=== PATIENT | male | born 1935 | race African-American/Black ===

== ENCOUNTER 2018-11-07 20:48 | Inpatient (IN) | payer MEDICAID ==
[~2018-11-07] VITALS: Ht 167.6 cm; Wt 64.9 kg
[2018-11-07 23:00] LABS: CHLORIDE 101 mEq/L (98-107)
[2018-11-07] MEDS ORDERED: KETOROLAC 15MG/ML VIAL IV ONE (23:00)
[2018-11-07 23:02] LABS: BASOPHILS % 0.4 % (0.0-2.0); HEMATOCRIT. 42.6 % (42.0-52.0); HEMOGLOBIN. 14.2 g/dL (14.0-18.0); LYMPHOCYTES % 7.1 % (20.0-50.0); MEAN CORPUSCULAR HEMOGLOBIN 34.7 pg (28.0-32.0); MEAN CORPUSCULAR VOLUME 104.2 fL (80.0-94.0); MEAN PLATELET VOLUME 8.2 fl (7.4-10.4); MONOCYTES % 9.7 % (2.0-8.0); NEUTROPHILS % 81.8 % (40.0-76.0); PLATELET 189 x1000/uL (130-400); RED BLOOD CELL COUNT 4.09 mill/uL (4.7-6.1); RED CELL DISTRIBUTION WIDTH 16.5 % (11.6-14.6)
[2018-11-07 23:03] LABS: ETHANOL BLOOD < 10 mg/dL
[2018-11-07 23:04] LABS: INR 1.2; PARTIAL THROMBOPLASTIN TIME 27.3 sec (23.4-31.0); PROTHROMBIN TIME 11.9 sec (9.6-11.0)
[2018-11-07] MEDS ORDERED: ASPIRIN 325MG EC TABLET PO ONE (23:30)
[2018-11-07] MEDS ORDERED: SODIUM CHLORIDE 0.9% 1,000 ML IV ONE (23:30)
[2018-11-08 00:02] LABS: *AMPHETAMINES SCREEN URINE NEGATIVE (NEGATIVE); *BARBITURATES SCREEN URINE NEGATIVE (NEGATIVE); *BENZODIAZEPINES SCREEN URINE NEGATIVE (NEGATIVE); *COCAINE SCREEN URINE NEGATIVE (NEGATIVE)
[2018-11-08 00:03] LABS: CANNABINOID URINE SCREEN NEGATIVE (NEGATIVE); METHADONE URINE SCREEN NEGATIVE (NEGATIVE); OPIATES URINE SCREEN NEGATIVE (NEGATIVE); PHENCYCLIDINE URINE SCREEN NEGATIVE (NEGATIVE)
[2018-11-08 05:37] VITALS: BP 111/56
[2018-11-08 05:39] VITALS: BP 111/56
[2018-11-08] MEDS ORDERED: DOCUSATE SODIUM 100MG CAPSULE PO PRN (06:15)
[2018-11-08] MEDS ORDERED: GUAIFENESIN 200MG/10ML SUGAR FREE UDC PO PRN (06:15)
[2018-11-08] MEDS ORDERED: ONDANSETRON HCL 4MG/2ML INJ IV PRN (06:15)
[2018-11-08 08:00] VITALS: BP 102/60
[2018-11-08] MEDS: AMLODIPINE 10MG TABLET PO SCH (09:00)
[2018-11-08] MEDS: ENOXAPARIN 30MG/0.3ML SYR SUBCUT SCH (09:31)
[2018-11-08] MEDS: ASPIRIN 81MG EC TABLET PO SCH (09:31)
[2018-11-08] MEDS: SODIUM CHLORIDE 0.9% 1,000 ML IV SCH ×2 (10:05→21:50)
[2018-11-08] MEDS ORDERED: LORA1TAB MT (10:24)
[2018-11-08] MEDS ORDERED: OMEG100020 MT (10:24)
[2018-11-08] MEDS ORDERED: DIXL5 MT (10:24)
[2018-11-08] MEDS ORDERED: POTA20TA82 MT (10:25)
[2018-11-08] MEDS ORDERED: SILD20TA MT (10:25)
[2018-11-08] MEDS ORDERED: PANT40TA4 MT (10:25)
[2018-11-08] MEDS ORDERED: SUCR1TAB PO (10:26)
[2018-11-08] MEDS ORDERED: TAMS-11 PO (10:26)
[2018-11-08] MEDS ORDERED: TRAM50TA3 MT (10:36)
[2018-11-08] MEDS ORDERED: RANI150C12 PO (10:38)
[2018-11-08] MEDS ORDERED: ACET250T3 MT (10:38)
[2018-11-08] MEDS ORDERED: ALLO100T MT (10:39)
[2018-11-08] MEDS ORDERED: ASPI-1393 MT (11:00)
[2018-11-08] MEDS ORDERED: BUME1TAB8 MT (11:02)
[2018-11-08] MEDS ORDERED: ATOR10TA69 MT (11:02)
[2018-11-08] MEDS ORDERED: DOCU-150 MT (11:03)
[2018-11-08] MEDS ORDERED: DONE5TAB33 MT (11:04)
[2018-11-08] MEDS ORDERED: GABA-529 MT (11:04)
[2018-11-08 12:00] VITALS: BP 109/65
[2018-11-08] MEDS: ACETAMINOPHEN 650MG/20.3ML UDC GT PRN (13:28)
[2018-11-08 15:45] VITALS: BP 112/54
[2018-11-08 17:20] LABS: T4 FREE 0.97 ng/dL (0.76-1.46)
[2018-11-08 20:00] VITALS: BP 110/60
[2018-11-09] VITALS (7 sets, daily range): BP systolic 105–140; BP diastolic 63–86
[2018-11-09] MEDS: HYDROCODONE/ACETAMINOPHEN 5/325MG TABLET PO PRN ×2 (00:03→06:15)
[2018-11-09 00:29] LABS: CREATINE KINASE MB FRACTION 2.2 ng/mL (0.5-3.6)
[2018-11-09 06:39] LABS: EOSINOPHILS % 3.3 % (0.0-5.0); HEMATOCRIT. 41.2 % (42.0-52.0); MEAN CORPUSCULAR HEMOGLOBIN 35.1 pg (28.0-32.0); MEAN CORPUSCULAR VOLUME 103.5 fL (80.0-94.0); MEAN PLATELET VOLUME 8.6 fl (7.4-10.4); MONOCYTES % 9.1 % (2.0-8.0); NEUTROPHILS % 72.6 % (40.0-76.0); PLATELET 182 x1000/uL (130-400); RED BLOOD CELL COUNT 3.98 mill/uL (4.7-6.1); RED CELL DISTRIBUTION WIDTH 16.7 % (11.6-14.6)
[2018-11-09 06:44] LABS: CHLORIDE 109 mEq/L (98-107)
[2018-11-09 06:52] LABS: HDL CHOLESTEROL 40 mg/dL (40-59)
[2018-11-09 06:56] LABS: CREATINE KINASE 99 IU/L (39-308); LDL CHOLESTEROL 39 mg/dL (5-100)
[2018-11-09 07:00] LABS: CREATINE KINASE MB FRACTION 2.3 ng/mL (0.5-3.6)
[2018-11-09] MEDS: AMLODIPINE 10MG TABLET PO SCH (09:34)
[2018-11-09] MEDS: ENOXAPARIN 30MG/0.3ML SYR SUBCUT SCH (09:34)
[2018-11-09] MEDS: ASPIRIN 81MG EC TABLET PO SCH (09:34)
[2018-11-09] MEDS: ACETAMINOPHEN 650MG/20.3ML UDC GT PRN (18:03)
[2018-11-10] MEDS ORDERED: ENOXAPARIN 40MG/0.4ML SYR SUBCUT SCH (09:00)
== END 2018-11-09 21:12 | disposition home or self-care (01) | DRG 48 ==
LOC: ER 21:37 → 7WST 11-08 02:28 → EDBEDREQDT 11-08 02:34 → EDBEDREQ 11-08 02:34 → EDBEDREQTM 11-08 02:34 → ENRESERV 11-08 02:47
PROVIDERS: ADMIT Hospitalist; ATTEND Hospitalist
DX: G90.8 Other disorders of autonomic nervous system (principal); N17.9 Acute kidney failure, unspecified; I95.9 Hypotension, unspecified; E11.22 Type 2 diabetes mellitus with diabetic chronic kidney disease; I27.20 Pulmonary hypertension, unspecified; I13.0 Hypertensive heart and chronic kidney disease with heart failure and stage 1 through stage 4 chronic kidney disease, or unspecified chronic kidney disease; I50.32 Chronic diastolic (congestive) heart failure; E86.0 Dehydration; F03.90 Unspecified dementia, unspecified severity, without behavioral disturbance, psychotic disturbance, mood disturbance, and anxiety; E78.00 Pure hypercholesterolemia, unspecified; E78.5 Hyperlipidemia, unspecified; I25.10 Atherosclerotic heart disease of native coronary artery without angina pectoris; N18.9 Chronic kidney disease, unspecified
CPT/HCPCS: 36415; 70486; 71045; 78580; 78582; 80061; 80305; 80320; 82550; 82553; 83036; 83880; 84439; 84443; 84484; 85379; 93005; 93306; 93970; 96374; 99285; C1893; J1650; J1885; J7030; G0480